=== PATIENT | female | born 1975 | race Caucasian/White ===

== ENCOUNTER 2021-06-07 18:30 | Emergency (ER) | payer MEDICAID ==
[~2021-06-07] VITALS: Ht 167.6 cm; Wt 63.5 kg
[2021-06-07] MEDS ORDERED: PROCHLORPERAZINE EDISYLATE 10 MG/2 ML VIAL IVP ONE (19:00)
[2021-06-07] MEDS ORDERED: IV NS 0.9% 1,000 ML BAG IV ONE (19:00)
[2021-06-07 19:15] LABS: BASOPHILS # (AUTO) 0.1 K/uL (0.0-0.2); BASOPHILS % (AUTO) 1.2 % (0.0-2.0); EOSINOPHILS % (AUTO) 0.5 % (0.0-6.0); HEMATOCRIT 41 % (33-45); HEMOGLOBIN 13.7 g/dL (11.5-14.8); LYMPHOCYTES # (AUTO) 2.1 K/uL (0.8-4.8); LYMPHOCYTES % (AUTO) 42.9 % (20.0-44.0); MEAN CORPUSCULAR HGB CONC 34 g/dl (31.0-36.0); MEAN CORPUSCULAR VOLUME 87 fL (82-100); MONOCYTES # (AUTO) 0.3 K/uL (0.1-1.30); MONOCYTES % (AUTO) 6.4 % (2.0-12.0); NEUTROPHILS # (AUTO) 2.4 K/uL (1.8-8.9); PLATELET COUNT (AUTO) 626 K/uL (150-450)
--- NOTE | 2021-06-07 19:22 | NUR ---
TOOK OVER PT CARE. PT AAOX4. AMBULATORY WITH STEADY GAIT. PLACED ON MONITOR AND PULSE OX. IV LINE ESTABLISHED LH 20G, 1L NS INITIATED. AWAITING OTHER MD ORDERS.
[2021-06-07] MEDS ORDERED: CHLORDIAZEPOXIDE HCL 25 MG CAPSULE ONE (19:27)
[2021-06-07] MEDS ORDERED: PROCHLORPERAZINE EDISYLATE 10 MG/2 ML VIAL ONE (19:27)
--- NOTE | 2021-06-07 19:27 | NUR ---
URINE SPECIMEN SENT TO LAB
[2021-06-07 19:29] LABS: ALBUMIN 3.9 g/dL (3.4-5.0); BILIRUBIN,DIRECT 0.1 mg/dL (0.0-0.2); BILIRUBIN,TOTAL 0.1 mg/dL (0.2-1.0); CALCIUM, SERUM 8.4 mg/dL (8.5-10.1); CREATININE 0.8 mg/dL (0.6-1.3); POTASSIUM 3.8 mmol/L (3.5-5.1); TOTAL PROTEIN, SERUM 7.8 g/dL (6.4-8.2)
[2021-06-07] MEDS ORDERED: CHLORDIAZEPOXIDE HCL 25 MG CAPSULE PO ONE (19:30)
[2021-06-07 19:33] LABS: BILIRUBIN,URINE Negative (NEGATIVE); COLOR,URINE YELLOW (YELLOW); LEUKOCYTE ESTERASE ,URINE Negative (NEGATIVE); NITRITE, URINE Negative (NEGATIVE); PROTEIN,URINE Trace mg/dl (NEGATIVE); UGLUCOSE Negative (NEGATIVE); UROBILINOGEN,URINE 0.2 EU/dL (0.2)
[2021-06-07 19:46] LABS: RBC,URINE 0-2 /HPF (0-2); WBC,URINE 0-2 /HPF (0-3)
[2021-06-07 19:47] LABS: BACTERIA,URINE 1+ /HPF (None Seen); SQUAMOUS EPITHELIAL CELL,UR Few /HPF (None Seen)
--- NOTE | 2021-06-07 20:29 | NUR ---
ERICID SWABBED, SENT TO LAB.
--- NOTE | 2021-06-07 22:32 | NUR ---
PT REQUESTING TO LEAVE ED. STATED SHE FEELS BETTER. PT AAOX4. AMBULATORY WITH STEADY GAIT.
[2021-06-07] MEDS ORDERED: CHLO25CA22 PO (22:50)
[2021-06-07] MEDS ORDERED: ONDA4TAB5 PO (22:50)
[2021-06-07 23:00] VITALS: BP 121/71
--- NOTE | 2021-06-07 23:00 | NUR ---
Patient discharged to home in stable condition. Written and verbal after care instructions given. Patient verbalizes understanding of instruction and RX. Pt ambulated out of ED. VSS. Picked up by Yash.
== END 2021-06-07 23:01 | disposition home or self-care (01) ==
LOC: ER 18:35
DX: F10.129 Alcohol abuse with intoxication, unspecified (principal); Y90.8 Blood alcohol level of 240 mg/100 ml or more; F32.9 Major depressive disorder, single episode, unspecified; E86.0 Dehydration; R51.9 Headache, unspecified; D47.3 Essential (hemorrhagic) thrombocythemia; R82.4 Acetonuria; R00.0 Tachycardia, unspecified; Z20.822 Contact with and (suspected) exposure to COVID-19
CPT/HCPCS: 36415; 80048; 80076; 80143; 80307; 80320; 81001; 84703; 85025; 87426; 96361; 96374; 99284; C9803; J0780; J7030; G0480